=== PATIENT | female | born 2000 | race Caucasian/White ===

== ENCOUNTER 2019-03-15 19:56 | Emergency (ER) | payer OTHER ==
[2019-03-15 20:27] VITALS: BP 128/73
--- NOTE | 2019-03-15 20:45 | ED ---
Throat Pain/Nasal Congestion - HPI Summary HPI Summary: 18 yrold female with complaint of pain to the left chin. Onset just prior to arrival. She was hit in the chin with a hockey stick earlier today when playing field hockey. The pain is moderate. Located on left side of chin. She can open and close the jaw normally without pain. her teeth feel normal. no numbness to the face. No neck pain and no LOC. - History of Current Complaint Chief Complaint: UCHeadInjury Time Seen by Provider: 03/15/19 20:33 - Allergies/Home Medications Allergies/Adverse Reactions: Allergies Allergy/AdvReac Type Severity Reaction Status Date / Time No Known Allergies Allergy Verified 03/15/19 20:27 Home Medications: Home Medications Oral Contraceptives DAILY 03/15/19 [History] Sertraline* [Zoloft*] 50 mg PO DAILY 03/15/19 [History Confirmed 03/15/19] PMH/Surg Hx/FS Hx/Imm Hx Infectious Disease History: No Infectious Disease History: Denies: Traveled Outside the [place] in Last 30 Days - Family History Known Family History: Positive: None - Social History Occupation: Student Alcohol Use: Rare Substance Use Type: Reports: None Smoking Status (MU): Never Smoked Tobacco Review of Systems Constitutional: Negative Positive: Other - left chin All Other Systems Reviewed And Are Negative: Yes Physical Exam Triage Information Reviewed: Yes Vital Signs On Initial Exam: Initial Vitals Temp Pulse Resp BP Pulse Ox 99.9 F 76 16 128/73 100 03/15/19 20:23 03/15/19 20:23 03/15/19 20:23 03/15/19 20:23 03/15/19 20:23 Vital Signs Reviewed: Yes Appearance: Positive: Well-Appearing, No Pain Distress Skin: Positive: Warm, Skin Color Reflects Adequate Perfusion Head/Face: Positive: Normal Head/Face Inspection Eyes: Positive: EOMI, DIAZ ENT: Positive: Normal ENT inspection, Pharynx normal, TMs normal, Other - normal bite. No STS. Mild tenderness left side of chin. No step off. No mandibular pain on open and closing the mouth. No maxillary tenderness. Dental: Negative: Percussion Tenderness @ Neck: Positive: Supple, Nontender Respiratory/Lung Sounds: Positive: Clear to Auscultation, Breath Sounds Present Cardiovascular: Positive: RRR. Negative: Murmur Abdomen Description: Negative: Distended Musculoskeletal: Positive: Strength/ROM Intact Neurological: Positive: Sensory/Motor Intact, Alert, Oriented to Person Place, Time, CN Intact II-III, Normal Gait, Speech Normal Psychiatric: Positive: Normal Diagnostics - Vital Signs Vital Signs Temp Pulse Resp BP Pulse Ox 03/15/19 20:23 99.9 F 76 16 128/73 100 - Laboratory Lab Statement: Any lab studies that have been ordered have been reviewed, and results considered in the medical decision making process. EENT Course/Dx - Course Course Of Treatment: contusion to chin. No CT ordered as this is high radiation dose and functionally she is intact with out pain. - Diagnoses Provider Diagnoses: Chin contusion Discharge ED - Sign-Out/Discharge Documenting (check all that apply): Patient Departure All imaging exams completed and their final reports reviewed: No Studies - Discharge Plan Condition: Good Disposition: HOME Patient Education Materials: Facial Contusion (ED) Referrals: No Primary Care Phys,NOPCP [Primary Care Provider] - Nils De Anda MD [Medical Doctor] - 2 Days - Billing Disposition and Condition Condition: GOOD Disposition: Home
== END 2019-03-15 20:44 | disposition home or self-care (01) ==
LOC: UCCORT 19:56
DX: S00.83XA Contusion of other part of head, initial encounter (principal); W21.210A Struck by ice hockey stick, initial encounter; Y93.65 Activity, lacrosse and field hockey; Y92.9 Unspecified place or not applicable
CPT/HCPCS: 99201; G0463